=== PATIENT | female | born 1965 | race African-American/Black ===

== ENCOUNTER 2017-06-27 12:21 | Emergency (ER) | payer MEDICARE, MEDICAID ==
[~2017-06-27] VITALS: Ht 167.6 cm; Wt 107.0 kg
[2017-06-27] MEDS ORDERED: IBUPROFEN 600MG TABLET PO STA (16:39)
[2017-06-27 17:30] VITALS: BP 146/88
== END 2017-06-27 17:41 | disposition home or self-care (01) ==
LOC: ER 13:06
DX: S52.501A Unspecified fracture of the lower end of right radius, initial encounter for closed fracture (principal); Y08.89XA Assault by other specified means, initial encounter; Y93.89 Activity, other specified; Y92.89 Other specified places as the place of occurrence of the external cause; Y99.8 Other external cause status
CPT/HCPCS: 29125; 73090; 99284; A4565

== ENCOUNTER 2018-04-30 14:48 | Emergency (ER) | payer MEDICARE, MEDICAID ==
[~2018-04-30] VITALS: Ht 170.2 cm; Wt 105.0 kg
[2018-04-30 17:48] VITALS: BP 154/96
== END 2018-04-30 19:30 | disposition home or self-care (01) ==
LOC: ER 14:48
DX: K64.4 Residual hemorrhoidal skin tags (principal); I10 Essential (primary) hypertension; J45.909 Unspecified asthma, uncomplicated
CPT/HCPCS: 99283

== ENCOUNTER 2020-05-11 15:46 | Emergency (ER) | payer MEDICARE, MEDICAID ==
[~2020-05-11] VITALS: Ht 167.6 cm; Wt 60.0 kg
[2020-05-11] MEDS ORDERED: KETOROLAC 30MG/ML VIAL IM ONE (16:45)
[2020-05-11 17:05] VITALS: BP 171/97
== END 2020-05-11 17:20 | disposition home or self-care (01) ==
LOC: ER 16:20
DX: M25.542 Pain in joints of left hand (principal); M25.541 Pain in joints of right hand; J45.909 Unspecified asthma, uncomplicated; I10 Essential (primary) hypertension
CPT/HCPCS: 96372; 99283; J1885